=== PATIENT | female | born 1975 | race Caucasian/White ===

== ENCOUNTER → 2017-07-07 | Outpatient (REF) | payer OTHER ==
[~2017-07-07] MED LIST: /MOM400 PO; ACET50TA PO; ANUS2.5C2 PR; DOCU10ELUD PO; IBUP80TA PO; LEVO50TA4 PO
== END ==
LOC: M SFHCCLAY 09:41
PROVIDERS: ATTEND Family Medicine
DX: Z12.4 Encounter for screening for malignant neoplasm of cervix (principal); Z01.419 Encounter for gynecological examination (general) (routine) without abnormal findings

== ENCOUNTER → 2017-08-05 | Outpatient (CLI) | payer OTHER | LOC: M RAD 08:12 | DX: N94.6 Dysmenorrhea, unspecified (principal) | CPT/HCPCS: 76856 ==

== ENCOUNTER → 2020-02-01 | Outpatient (CLI) | payer OTHER ==
[~2020-02-01] MED LIST changes: -/MOM400 PO; -ACET50TA PO; -DOCU10ELUD PO; +DOCU5LIQ PO; +MAPA500T17 PO; +MILK10SU PO
--- NOTE | 2020-02-02 00:48 | REP ---
MRCP: MRCP exam is accomplished utilizing multiple heavily T2-weighted sequences in the axial and coronal planes, with MIP reconstruction images. No filling defect is seen in the gallbladder. There is no gallbladder wall edema. There is no intrahepatic or extrahepatic biliary dilatation. Maximum diameter of the common bile duct is approximately 3 mm. Pancreatic duct is not dilated. There is no evidence of cholelithiasis or choledocholithiasis. The liver, spleen, adrenals, pancreas, and kidneys are grossly unremarkable in appearance. I see no adenopathy or free fluid. IMPRESSION: Negative MRCP exam. Electronically Signed by Deven Mistry MD 02/05/2020 09:14 A
== END ==
LOC: M RAD 15:56
PROVIDERS: ATTEND Nurse Practitioner Family
DX: Z52.6 Liver donor (principal)

== ENCOUNTER → 2024-03-30 | Outpatient (CLI) | payer OTHER ==
[2024-03-30 15:00] LABS: BASO % 0.8 % (0.0-1.0); EOS # 0.1 10^3/uL (0.0-0.5); EOS % 2.1 % (0.0-3.0); HEMATOCRIT 40.2 % (36.0-47.0); HEMOGLOBIN 12.8 g/dl (12.0-15.5); LYMPH # 1.5 10^3/uL (1.5-5.0); LYMPH % 28.5 % (24.0-44.0); MEAN CORPUSCULAR HEMOGLOBIN 30.8 pg (27.0-33.0); MEAN CORPUSCULAR HGB CONC 31.8 g/dl (32.0-36.5); MEAN CORPUSCULAR VOLUME 96.6 fl (80.0-96.0); MONO # 0.5 10^3/uL (0.0-0.8); MONO % 9.1 % (2.0-8.0); NEUTROPHILS # 3.1 10^3/uL (1.5-8.5); NEUTROPHILS % 59.3 % (36.0-66.0); PLATELET COUNT, AUTOMATED 290 10^3/uL (150-450); RED BLOOD COUNT 4.16 10^6/uL (4.00-5.40); WHITE BLOOD COUNT 5.3 10^3/uL (4.0-10.0)
[2024-03-30 15:30] LABS: ALKALINE PHOSPHATASE 104 U/L (46-116); ALT/SGPT 48 U/L (7.0-40); AST/SGOT 28 U/L (<34); BILIRUBIN,TOTAL 0.7 MG/DL (0.3-1.2); BLOOD UREA NITROGEN 8 MG/DL (9-23); CALCIUM LEVEL 9.3 MG/DL (8.5-10.1); CARBON DIOXIDE LEVEL 29 MMOL/L (20-31); CHLORIDE LEVEL 105 MMOL/L (98-107); CREATININE FOR GFR 0.66 MG/DL (0.55-1.30); GLOMERULAR FILTRATION RATE > 60.0 (>58); GLUCOSE, FASTING 78 MG/DL (60-100); POTASSIUM SERUM 4.3 MMOL/L (3.5-5.1); SODIUM LEVEL 137 MMOL/L (136-145); TOTAL PROTEIN 7.2 G/DL (5.7-8.2)
[2024-03-31 17:07] LABS: % CD4+ LYMPHS 52.8 % (30.8-58.5); ABSOLUTE CD4 HELPER 845 /uL (359-1519); BASOPHILS 1 % (Not Estab.); EOSINOPHILS 2 % (Not Estab.); EOSINOPHILS ABSOLUTE 0.1 x10E3/uL (0.0-0.4); HCT 38.7 % (34.0-46.6); HGB 12.9 g/dL (11.1-15.9); LYMPHOCYTES 28 % (Not Estab.); LYMPHOCYTES ABSOLUTE 1.6 x10E3/uL (0.7-3.1); MCH 31.2 pg (26.6-33.0); MCHC 33.3 g/dL (31.5-35.7); MCV 94 fL (79-97); MONOCYTES 10 % (Not Estab.); MONOCYTES ABSOLUTE 0.6 x10E3/uL (0.1-0.9); NEUTROPHILS 59 % (Not Estab.); NEUTROPHILS ABSOLUTE 3.4 x10E3/uL (1.4-7.0); PLT 274 x10E3/uL (150-450); RBC 4.13 x10E6/uL (3.77-5.28); RDW 11.9 % (11.7-15.4); WBC 5.7 x10E3/uL (3.4-10.8)
[2024-04-07 02:48] LABS: HSV-2 IgG Confirmation POSITIVE
== END ==
LOC: M PLALAB 09:53
PROVIDERS: ATTEND Internal Medicine Infectious Disease
DX: B00.9 Herpesviral infection, unspecified (principal)

== ENCOUNTER → 2024-03-30 | Outpatient (CLI) | payer OTHER | LOC: M RAD 06:38 | PROVIDERS: ATTEND Surgery Trauma Surgery | DX: K82.4 Cholesterolosis of gallbladder (principal) ==

== ENCOUNTER → 2024-08-11 | Outpatient (CLI) | payer OTHER ==
[~2024-08-11] MED LIST changes: +ISOVUE-300 61% 100ML VIAL As Ordered ONE; +LIDOCAINE 1% MDV 20ML VIAL As Ordered ONE; +PROHANCE 279.3MG/ML 5ML VIAL As Ordered ONE
== END ==
LOC: M RAD 07:01
PROVIDERS: ATTEND Orthopaedic Surgery Hand Surgery
DX: M16.12 Unilateral primary osteoarthritis, left hip (principal); M25.552 Pain in left hip
CPT/HCPCS: 27093; 73723; 77002; A9576; Q9967